=== PATIENT | female | born 1995 | race Hispanic/Latino ===

== ENCOUNTER 2016-08-24 11:58 | Emergency (ER) | payer OTHER, SELFPAY ==
[~2016-08-24] VITALS: Ht 162.6 cm; Wt 59.9 kg
[2016-08-24 13:18] LABS: BASO % 0.3 % (0.0-1.0); EOS # 0.1 K/mm3 (0.0-0.50); EOS % 1.1 % (0.0-3.0); LARGE UNSTAINED CELL # 0.2 K/mm3 (0.0-0.4); LARGE UNSTAINED CELL % 2.1 % (0.0-4.0); LYMPH # 1.9 K/mm3 (1.5-6.5); LYMPH % 22.1 % (24.0-44.0); MEAN CORPUSCULAR HEMOGLOBIN 29.4 pg (27.0-33.0); MEAN CORPUSCULAR HGB CONC 33.4 g/dl (32.0-36.5); MEAN CORPUSCULAR VOLUME 88.1 fl (80.0-96.0); MONO # 0.4 K/mm3 (0.0-0.8); MONO % 5.4 % (0.0-5.0); NEUTROPHILS # 5.4 K/mm3 (1.8-7.7); NEUTROPHILS % 68.9 % (36.0-66.0); PLATELET COUNT, AUTOMATED 318 k/mm3 (150-450); WHITE BLOOD COUNT 7.8 K/mm3 (4.0-10.0)
[2016-08-24 13:19] LABS: INR 1.07
[2016-08-24 13:27] LABS: ANION GAP 3 MEQ/L (8-16); BLOOD UREA NITROGEN 11 MG/DL (7-18); CALCIUM LEVEL 8.9 MG/DL (8.5-10.1); CARBON DIOXIDE LEVEL 31 MEQ/L (21-32); CHLORIDE LEVEL 105 MEQ/L (98-107); CREATININE FOR GFR 0.95 MG/DL (0.55-1.02); GLOMERULAR FILTRATION RATE > 60.0 (>60); GLUCOSE, FASTING 88 MG/DL (70-105); POTASSIUM SERUM 3.8 MEQ/L (3.5-5.1); SODIUM LEVEL 139 MEQ/L (136-145)
[2016-08-24 13:43] LABS: CONTROL LINE HCG INT CTR LINE PRESENT
[2016-08-24 13:55] LABS: ERYTHROCYTE SEDIMENTATION RATE 12 mm/hr (0-20)
--- NOTE | 2016-08-24 14:16 | REP ---
Portable chest, single AP view, patient sitting, 01:57 p.m., 08/24/2016: The lung mendez are clear. The cardiac size is normal. The raghavendra, mediastinum, and bony thorax are unremarkable. Impression: Negative portable chest. Signed by Adriel Atkinson MD 08/24/2016 02:06 P
[2016-08-24] MEDS ORDERED: KETOROLAC 30 MG/ML VIAL (J1885) IV ONE (16:15)
--- NOTE | 2016-08-24 16:28 | ECHO ---
DATE OF PROCEDURE: 08/24/2016 AGE: 21 GENDER: Female HEIGHT: 64 inches WEIGHT: 132 pounds BODY SURFACE AREA: 1.64 m2 PATIENT LOCATION: Outpatient, emergency room. REFERRING PHYSICIAN: Rolando Hurst MD INDICATION: Murmur/pericardial rub. 2-D MEASUREMENTS: RV: 3.9 cm LV: 4.1 cm Septum: 0.9 cm Posterior wall: 0.9 cm Aortic root: 2.3 cm LA: 3.3 cm LVEF: 75% DOPPLER MEASUREMENTS: AV: 1.5 m/s LVOT: 1.1 m/s LVOT diameter: 1.6 cm MV-E: 110, A: 48, EA ratio: 2.3 Early mitral deceleration time: 211 ms E prime: 12, A prime: 9, E/E prime ratio: 9 PV: 1.0 m/s Pulmonary artery acceleration time: 127 ms PASP: 22 mmHg IVC: 1.2 cm COMMENTS: Normal sinus rhythm/sinus bradycardia without intraventricular conduction disturbance. Normal cardiac chamber sizes and wall thickness. On real-time imaging from the parasternal and apical projections wall motion was symmetrical and hyperkinetic. Normal appearing mitral valvular apparatus and leaflet excursion with no posterior systolic buckling. Three equal size aortic cusps of normal thickness and cusp separation. Normal aortic root size. No apparent intracardiac mass or pericardial effusion. Pericardial thickness did not appear to be increased. Color flow Doppler study taken from the parasternal and short axis projection showed trace mitral and tricuspid with no aortic insufficiency, but mild pulmonic insufficiency. (Physiological findings). Guided continuous wave Doppler of her aortic valve showed a normal peak systolic velocity against left ventricle (LV) outflow tract obstruction. Pulsed and continuous wave Doppler of her LV inflow tract taken from the apical four-chamber projection showed normal diastolic filling velocities against mitral stenosis. The filling pattern was also normal. No other Doppler or tissue Doppler findings to suggest LV diastolic dysfunction. Estimated mean left atrial pressure within normal limits. Pulsed and continuous wave Doppler of her pulmonary trunk showed a normal peak systolic velocity against RV outflow tract obstruction. Pulmonary artery acceleration time was normal against an elevated pulmonary vascular resistance. We attempted to further estimate her right ventricular systolic pressure using guided continuous wave Doppler of her tricuspid valve, but could not get a clear spectral envelope. Normal inferior vena cava (IVC) size and respiratory collapse against an elevated central venous pressure. CONCLUSIONS: Unable to detect a structural or functional valvular abnormality to account for the patient's murmur. Suspected physiologic/flow related. No sign of pericardial thickening or pericardial effusion. Normal-appearing echocardiogram.
[2016-08-24] MEDS ORDERED: COLC1CAP PO (16:35)
[2016-08-24] MEDS ORDERED: IBUP80TA PO (16:35)
[2016-08-24 16:45] VITALS: BP 140/78
--- NOTE | 2016-08-25 08:18 | ECGEPIP ---
Stationary ECG Study [facility] - ED Test Date: 2016-08-24 Pat Name: CATHY KENNEY Department: Room: - Gender: F [employer] Team Member: GUY : 1995 Requested By: ROBERT Cline Order Number: [id number] Reading MD: Yamileth Jaimes Measurements Intervals [place] Rate: 61 P: 50 [place]: 190 QRS: 86 QRSD: 85 T: 54 QT: 408 QTc: 411 Interpretive Statements SINUS RHYTHM POSSIBLE RIGHT VENTRICULAR CONDUCTION DELAY NO PRIOR FOR COMPARISON Electronically Signed On 08-25-2016 8:17:57 EDT by Yamileth Jaimes
== END 2016-08-24 16:53 | disposition home or self-care (01) ==
LOC: EDBD 11:58 → M ED 12:58
DX: I30.1 Infective pericarditis (principal); I45.10 Unspecified right bundle-branch block; R01.1 Cardiac murmur, unspecified
CPT/HCPCS: 71010; 80048; 82550; 82553; 84443; 84703; 85025; 85379; 85610; 85652; 85730; 86140; 87040; 93005; 93041; 94760; 96374; 99285; J1885

== ENCOUNTER 2016-09-07 23:54 | Emergency (ER) | payer OTHER ==
[~2016-09-07] VITALS: Ht 162.6 cm; Wt 59.1 kg
[~2016-09-07 23:54] MED LIST: COLC1CAP PO; IBUP80TA PO
[2016-09-08 02:29] LABS: BASO % 0.4 % (0.0-1.0); EOS # 0.1 K/mm3 (0.0-0.50); EOS % 1.7 % (0.0-3.0); LARGE UNSTAINED CELL # 0.2 K/mm3 (0.0-0.4); LARGE UNSTAINED CELL % 2.1 % (0.0-4.0); LYMPH # 2.7 K/mm3 (1.5-6.5); LYMPH % 30.2 % (24.0-44.0); MEAN CORPUSCULAR HEMOGLOBIN 30.4 pg (27.0-33.0); MEAN CORPUSCULAR VOLUME 86.8 fl (80.0-96.0); MONO # 0.4 K/mm3 (0.0-0.8); MONO % 4.9 % (0.0-5.0); NEUTROPHILS % 60.6 % (36.0-66.0); PLATELET COUNT, AUTOMATED 284 k/mm3 (150-450); RED CELL DISTRIBUTION WIDTH 11.9 % (11.5-14.5); WHITE BLOOD COUNT 8.3 K/mm3 (4.0-10.0)
[2016-09-08 02:35] LABS: ANION GAP 7 MEQ/L (8-16); BLOOD UREA NITROGEN 13 MG/DL (7-18); CARBON DIOXIDE LEVEL 30 MEQ/L (21-32); CHLORIDE LEVEL 102 MEQ/L (98-107); CREATININE FOR GFR 0.95 MG/DL (0.55-1.02); GLOMERULAR FILTRATION RATE > 60.0 (>60); GLUCOSE, FASTING 97 MG/DL (70-105); POTASSIUM SERUM 3.6 MEQ/L (3.5-5.1); SODIUM LEVEL 139 MEQ/L (136-145)
[2016-09-08] MEDS ORDERED: KETOROLAC 30 MG/ML VIAL (J1885) IV ONE (04:00)
[2016-09-08 04:13] LABS: ERYTHROCYTE SEDIMENTATION RATE 6 mm/hr (0-20)
[2016-09-08] MEDS ORDERED: KETO10TAB PO (05:05)
[2016-09-08 05:22] VITALS: BP 112/63
--- NOTE | 2016-09-08 05:43 | ECGEPIP ---
Stationary ECG Study [facility] - ED Test Date: 2016-09-08 Pat Name: CATHY KENNEY Department: Room: - Gender: F [employer]: caesar : 1995 Requested By: JET MONDRAGON Order Number: [id number] Reading MD: Kyrie Hurst Measurements Intervals [place] Rate: 57 P: 60 [place]: 192 QRS: 88 QRSD: 85 T: 59 QT: 425 QTc: 416 Interpretive Statements SINUS BRADYCARDIA Electronically Signed On 09-08-2016 5:43:19 EDT by Kyrie Hurst
== END 2016-09-08 05:24 | disposition home or self-care (01) ==
LOC: M ED 09-08 01:18
DX: I30.9 Acute pericarditis, unspecified (principal); Z79.899 Other long term (current) drug therapy
CPT/HCPCS: 80048; 82550; 82553; 85025; 85652; 86140; 93005; 96374; 99283; J1885

== ENCOUNTER 2016-10-10 12:08 | Emergency (ER) | payer OTHER ==
[~2016-10-10] VITALS: Ht 162.6 cm; Wt 66.3 kg
[~2016-10-10 12:08] MED LIST changes: +KETO10TAB PO
[2016-10-10 12:23] VITALS: BP 139/73
[2016-10-10] MEDS ORDERED: MELO7.5T7 (12:29)
[2016-10-10] MEDS ORDERED: PRED20TA PO (13:35)
[2016-10-10] MEDS ORDERED: INDO25CA PO (13:35)
== END 2016-10-10 13:53 | disposition home or self-care (01) ==
LOC: M ED 12:08
DX: R07.1 Chest pain on breathing (principal); Z79.899 Other long term (current) drug therapy

== ENCOUNTER 2016-10-16 15:29 | Emergency (ER) | payer OTHER ==
[~2016-10-16] VITALS: Ht 162.6 cm; Wt 61.8 kg
[~2016-10-16 15:29] MED LIST changes: +INDO25CA PO; +MELO7.5T7; +PRED20TA PO
[2016-10-16] MEDS ORDERED: KETOROLAC 30 MG/ML VIAL (J1885) IV ONE (16:00)
[2016-10-16 16:14] LABS: BASO % 0.2 % (0.0-1.0); EOS # 0.2 K/mm3 (0.0-0.50); EOS % 2.2 % (0.0-3.0); LARGE UNSTAINED CELL # 0.2 K/mm3 (0.0-0.4); LARGE UNSTAINED CELL % 2.1 % (0.0-4.0); LYMPH # 2.3 K/mm3 (1.5-6.5); MEAN CORPUSCULAR HGB CONC 33.5 g/dl (32.0-36.5); MEAN CORPUSCULAR VOLUME 86.5 fl (80.0-96.0); MONO # 0.4 K/mm3 (0.0-0.8); MONO % 5.3 % (0.0-5.0); NEUTROPHILS # 4.9 K/mm3 (1.8-7.7); NEUTROPHILS % 63.2 % (36.0-66.0); PLATELET COUNT, AUTOMATED 321 k/mm3 (150-450); WHITE BLOOD COUNT 7.8 K/mm3 (4.0-10.0)
[2016-10-16 16:23] LABS: INR 1.03
[2016-10-16 16:33] LABS: ERYTHROCYTE SEDIMENTATION RATE 11 mm/hr (0-20)
[2016-10-16 16:40] LABS: ALBUMIN 3.9 GM/DL (3.2-5.2); ALKALINE PHOSPHATASE 52 U/L (45-117); ALT/SGPT 19 U/L (12-78); ANION GAP 9 MEQ/L (8-16); AST/SGOT 12 U/L (15-37); BILIRUBIN,DIRECT 0.2 MG/DL (0.0-0.2); BILIRUBIN,TOTAL 0.6 MG/DL (0.2-1.0); BLOOD UREA NITROGEN 17 MG/DL (7-18); CALCIUM LEVEL 8.7 MG/DL (8.5-10.1); CARBON DIOXIDE LEVEL 27 MEQ/L (21-32); CHLORIDE LEVEL 103 MEQ/L (98-107); CREATININE FOR GFR 0.77 MG/DL (0.55-1.02); GLOMERULAR FILTRATION RATE > 60.0 (>60); GLUCOSE, FASTING 97 MG/DL (70-105); POTASSIUM SERUM 3.7 MEQ/L (3.5-5.1); SODIUM LEVEL 139 MEQ/L (136-145); TOTAL PROTEIN 7.8 GM/DL (6.4-8.2)
[2016-10-16] MEDS ORDERED: ULTR50TA8 PO (17:04)
[2016-10-16 17:08] VITALS: BP 152/69
--- NOTE | 2016-10-16 19:35 | ECGEPIP ---
Stationary ECG Study [facility] - ED Test Date: 2016-10-16 Pat Name: CATHY KENNEY Department: Room: - Gender: F [employer]: ELAINE : 1995 Requested By: Tyson Rebolledo PA-C Order Number: [id number] Reading MD: Kyrie Hurst Measurements Intervals [place] Rate: 66 P: 61 [place]: 178 QRS: 92 QRSD: 83 T: 67 QT: 409 QTc: 430 Interpretive Statements SINUS RHYTHM BORDERLINE RIGHT AXIS DEVIATION SIMILAR TO 09/08/16 Electronically Signed On 10-16-2016 19:35:15 EDT by Kyrie Hurst
== END 2016-10-16 17:11 | disposition home or self-care (01) ==
LOC: M ED 15:29
DX: R07.89 Other chest pain (principal); Z79.52 Long term (current) use of systemic steroids
CPT/HCPCS: 80048; 80076; 81025; 82550; 82553; 83690; 84443; 85025; 85379; 85610; 85652; 85730; 86140; 93005; 96374; 99284; J1885

== ENCOUNTER 2016-11-29 10:04 | Emergency (ER) | payer OTHER ==
[~2016-11-29] VITALS: Ht 162.6 cm; Wt 63.6 kg
[~2016-11-29 10:04] MED LIST changes: +ULTR50TA8 PO
--- NOTE | 2016-11-29 11:23 | REP ---
Clinical: Chest pain . Comparison: 08/24/2016 . Technique: PA and lateral. Findings: The mediastinum and cardiac silhouette are normal. The lung mendez are clear and without acute consolidation, effusion, or pneumothorax. The skeletal structures are intact and normal. Impression: 1. No acute cardiopulmonary process. Signed by Shaji Pichardo MD 11/29/2016 11:15 A
[2016-11-29 12:09] VITALS: BP 118/59
--- NOTE | 2016-12-01 07:10 | ECGEPIP ---
Stationary ECG Study [facility] - ED Test Date: 2016-11-29 Pat Name: CATHY KENNEY Department: Room: - Gender: F [place] [employer]: kathi : 1995 Requested By: MATTHIEU GUZMAN Order Number: [id number] Reading MD: Yamileth Jaimes Measurements Intervals [place] Rate: 61 P: 52 [place]: 203 QRS: 89 QRSD: 83 T: 59 QT: 410 QTc: 415 Interpretive Statements SINUS RHYTHM SIMILAR 10/16/16 Electronically Signed On 12-01-2016 7:09:43 EDT by Yamileth Jaimes
== END 2016-11-29 12:15 | disposition home or self-care (01) ==
LOC: M ED 10:04
DX: M94.0 Chondrocostal junction syndrome [Tietze] (principal); R06.02 Shortness of breath